=== PATIENT | male | born 1950 | race Caucasian/White ===

== ENCOUNTER → 2016-08-14 | Outpatient (CLI) | payer OTHER ==
[~2016-08-14] VITALS: Ht 172.7 cm; Wt 110.7 kg
[~2016-08-14] MED LIST: FISH OIL 1,001000 M2 PO; IBUPROFEN 800800 M1 PO; LEVOTHYROXINE0.2 M1 PO; NEURONTIN 300300 M1 PO; NORCO 10-325 T1 EACH PO; OMEPRAZOLE20 M2 PO; ROBAXIN 750 MG750 M1 PO; TRAMADOL 50 MG50 MG PO; VIAGRA50 MG PO; VITAMIN B-1100 M1 PO
--- NOTE | ~2016-08-14 | HPC ---
[facility] [address] [place] [address] PAIN MANAGEMENT CONSULTATION Name: ROSLYNMURALI Benoit Room #: REG [facility]..#: [id number] Admission: 08/14/16 Attend Phys: Tiburcio Benitez DO Discharge: Date of : 46 Report #: [id number] THIS REPORT FOR: //name// CC: JAZZMINEDarwin Benitez DATE OF SERVICE: 08/14/2016 The patient is a very pleasant 66-year-old gentleman, prior seen in consultation 07/24/2016, given cervical epidural injection at that time. Returns to pain clinic today noting he has had good incremental relief following the injection, specifically the patient relates up to 50% relief. Relief is ongoing but still has pain in the neck, shoulder and arm. Headaches were dramatically improved. Pain is a little worse on the left than the right, but is present on both sides. He describes constant, tender aching sensation. Did have an MRI 4 p.m. on Sunday and unfortunately those results not available yet. PHYSICAL EXAMINATION: Shows 66-year-old gentleman, BMI is 37.1 kilograms per meter squared. Vital signs are generally stable with modest systolic hypertension, 162/82, pulse 90, respirations 16. Alert and oriented to person, place and time, judged to be a reasonable historian. Modestly positive Lhermitte's bilaterally. Upper extremity strength is preserved. ASSESSMENT: Symptomatic cervical radiculopathy in a 66-year-old gentleman with multiple comorbidities including history of posttraumatic stress disorder and myofascial pain, incremental improvement greater than 50% following initial injection, but still has ongoing symptoms. RECOMMENDATION: Repeat epidural injection under fluoroscopy today. Follow up in 3-4 weeks for reevaluation. We should have the MRI. Within a few days, we can review those findings and correlate with any residual issues. ASSESSMENT: Symptomatic cervical radiculopathy. PROCEDURE: Cervical epidural injection under fluoroscopy. PROCEDURE NOTE: After written and informed consent was obtained including risk of dural puncture, spinal cord trauma, paralysis and increased pain, the patient was taken to the fluoroscopy suite and placed in the prone position, with appropriate abdominal bolstering, neck was flexed, palms under the thighs. Skin was prepped with ChloraPrep. Sterile draping was applied. Skin wheal with 1% Xylocaine was raised. A 22-gauge 3-1/2 inch epidural Tuohy needle was placed via a midline approach at the C7-T1 interspace, advanced under biplanar fluoroscopy using continuous loss of resistance. With appropriate loss of [address] [address] PAIN MANAGEMENT CONSULTATION Name: MURALI MCGOWAN Room #: REG [facility].#: [id number] Admission: 08/14/16 Attend Phys: Tiburcio Benitez DO Discharge: Date of : 46 Report #: [id number] resistance at the expected depth on lateral view, the glass loss of resistance syringe was disconnected. A low volume extension tubing was connected to the needle and a 5 mL syringe. Negative aspiration for cerebrospinal fluid or blood was noted. A 1 mL of Omnipaque was injected which showed spread within the epidural space on biplanar fluoroscopy. This was followed with 80 mg of triamcinolone plus 1 mL of 1.5% preservative Xylocaine. Needle was withdrawn to the interspinous ligament, 0.5 mL of Xylocaine was used to flush the needle. The needle was then completely withdrawn. The area was cleansed. Band-Aid was applied. The patient was allowed to move off the procedure table and ambulated to the recovery room, monitored for an appropriate period of time, discharged in good and stable condition. By: [id number] Tiburcio Benitez DO /nt
[2016-08-14 08:11] VITALS: BP 162/82
== END ==
LOC: PAIN 06:58
DX: M54.12 Radiculopathy, cervical region (principal); F43.10 Post-traumatic stress disorder, unspecified; M79.1 Myalgia; I10 Essential (primary) hypertension

== ENCOUNTER → 2016-09-04 | Outpatient (CLI) | payer OTHER ==
[~2016-09-04] VITALS: Ht 172.7 cm; Wt 111.6 kg
--- NOTE | ~2016-09-04 | HPC ---
[facility] [address] [place] [address] PAIN MANAGEMENT CONSULTATION Name: ROSLYNMURALI Benoit Room #: REG [facility] [place].#: [id number] Admission: 09/04/16 Attend Phys: Tiburcio Benitez DO Discharge: Date of : 46 Report #: [id number] THIS REPORT FOR: //name// CC: JAZZMINE Benitez The patient is a very pleasant 66-year-old gentleman. He has had 2 cervical epidural injections 07/24/2016 and again 08/14/2016. Greater than 50% overall relief. Still, however, has pain primarily neck, left shoulder greater than right and decreased hand grasp strength. PHYSICAL EXAMINATION: Shows pleasant 66-year-old gentleman, moderately obese with a BMI at 37.1 kilograms per meter squared. Cervical range of motion is modestly limited with the positive limits. Upper extremity strength is symmetric though hand grasp is diminished bilaterally. Moderately positive Tinel's though the patient notes 15-20 years ago he had 2 right and one left carpal tunnel release surgeries. Very tender in the splenius capitis, trapezius and upper thoracic paravertebral muscles. Looks to be a component of myofascial pain. MEDICATIONS: Were reconciled, noting the patient does use ibuprofen 800 mg t.i.d., hydrocodone 10/325 p.r.n., tramadol p.r.n., methocarbamol as needed for spasm, gabapentin 300 mg t.i.d. along with medications for erectile dysfunction, gastroesophageal reflux, hypothyroidism. DIAGNOSTIC STUDIES: MRI results unfortunately still were not available at this time. ASSESSMENT: Symptomatic cervical radiculopathy by clinical exam with component of myofascial pain in the splenius capitis, trapezius and upper thoracic paravertebral muscles. We will defer to his treating physicians, but may benefit from addition of a selective serotonin reuptake and norepinephrine reuptake inhibiting agent (Cymbalta? 30-60 mg daily). Again, I will defer to his primary treating physicians at the [facility]. Today, we will move forward with third cervical epidural injection under fluoroscopy given incremental relief first 2 injections. We will suggest the patient follow up with neurosurgery if symptoms continue to be problematic. ASSESSMENT: Symptomatic cervical radiculopathy. PROCEDURE: Cervical epidural injection under fluoroscopy. PROCEDURE NOTE: After written and informed consent was obtained including risk of dural puncture, spinal cord trauma, paralysis and increased pain, the patient was taken to the fluoroscopy suite and placed in the prone position, with [facility] [address] [place] [address] PAIN MANAGEMENT CONSULTATION Name: MURALI MCGOWAN Room #: REG [facility]#: [id number] Admission: 09/04/16 Attend Phys: Tiburcio Benitez DO Discharge: Date of : 46 Report #: [id number] appropriate abdominal bolstering, neck was flexed, palms under the thighs. Skin was prepped with ChloraPrep. Sterile draping was applied. Skin wheal with 1% Xylocaine was raised. A 22-gauge 3-1/2 inch epidural Tuohy needle was placed via a midline approach at the C7-T1 interspace, advanced under biplanar fluoroscopy using continuous loss of resistance. With appropriate loss of resistance at the expected depth on lateral view, the glass loss of resistance syringe was disconnected. A low volume extension tubing was connected to the needle and a 5 mL syringe. Negative aspiration for cerebrospinal fluid or blood was noted. A 1 mL of Omnipaque was injected which showed spread within the epidural space on biplanar fluoroscopy. This was followed with 80 mg of triamcinolone plus 1 mL of 1.5% preservative Xylocaine. Needle was withdrawn to the interspinous ligament, 0.5 mL of Xylocaine was used to flush the needle. The needle was then completely withdrawn. The area was cleansed. Band-Aid was applied. The patient was allowed to move off the procedure table and ambulated to the recovery room, monitored for an appropriate period of time, discharged in good and stable condition. Fluoroscopy time is 10 seconds. By: [id number] Tiburcio Benitez DO /reyes
[2016-09-04 08:10] VITALS: BP 149/73
== END ==
LOC: PAIN 06:47
DX: M54.12 Radiculopathy, cervical region (principal); M25.512 Pain in left shoulder; E66.8 Other obesity; Z68.37 Body mass index [BMI] 37.0-37.9, adult; K21.9 Gastro-esophageal reflux disease without esophagitis; E03.9 Hypothyroidism, unspecified; M79.1 Myalgia; Z87.891 Personal history of nicotine dependence